=== PATIENT | female | born 1955 | race Two or more races ===

== ENCOUNTER 2019-01-20 10:42 | Observation (INO) | payer OTHER ==
[~2019-01-20] VITALS: Ht 152.4 cm; Wt 72.6 kg
--- NOTE | 2019-01-20 11:28 | NUR ---
PT PRESENTED TO ED WITH CHEST PAIN X 2 DAYS. PT A&OX4. EKG DONE IN TRIAGE. PT PLACED ON BP, CARDIAC, AND CONT. PULSE OXIMETER. ASSESSMENT COMPLTED. CALL LIGHT IN REACH.
[2019-01-20] MEDS ORDERED: ASPIRIN 81 MG TABLET CHEW PO ONE (11:30)
[2019-01-20] MEDS ORDERED: ASPIRIN 81 MG TABLET CHEW ONE (11:35)
--- NOTE | 2019-01-20 11:43 | NUR ---
BREAK RN: PT MEDICATED ORDERED. PT AMB TO BR GAIT STEADY, TO ATTEMPT TO PROVIDE URINE SPECIMAN.
[2019-01-20 11:46] LABS: BASOPHILS # (AUTO) 0.03 x10^3/uL (0-0.1); BASOPHILS % (AUTO) 0 % (0-1); EOSINOPHILS # (AUTO) 0.04 x10^3/uL (0-0.4); EOSINOPHILS % (AUTO) 1 % (1-7); LYMPHOCYTES # (AUTO) 1.92 x10^3/uL (1-3.4); LYMPHOCYTES % (AUTO) 29 % (22-44); MD NO; MEAN CORPUSCULAR HEMOGLOBIN 30.4 pg (27.0-34.8); MEAN CORPUSCULAR HGB CONC 33.9 g/dL (32.4-35.8); MEAN CORPUSCULAR VOLUME 89.7 fL (80-100); MEAN PLATELET VOLUME 7.7 fL (7.4-10.4); MONOCYTES # (AUTO) 0.38 x10^3/uL (0.2-0.8); MONOCYTES % (AUTO) 6 % (2-9); NEUTROPHILS # (AUTO) 4.26 x10^3/uL (1.8-6.8); NEUTROPHILS % (AUTO) 64 % (42-75); PLATELET COUNT 196 x10^3/uL (130-400); RED BLOOD COUNT 4.46 x10^6/uL (3.82-5.3); RED CELL DISTRIBUTION WIDTH 13.1 % (9.6-15.2)
[2019-01-20 11:54] LABS: CHLORIDE 112 mmol/L (98-107)
[2019-01-20 11:57] LABS: ALBUMIN 3.8 g/dL (3.4-5.0); ANION GAP 6 mmol/L (5-15)
[2019-01-20 12:02] LABS: ALANINE AMINOTRANSFERASE 22 U/L (12-78); ALKALINE PHOSPHATASE 76 U/L (45-117); BILIRUBIN,TOTAL 0.3 mg/dL (0.2-1.0); TOTAL PROTEIN 7.4 g/dL (6.4-8.2); TROPONIN I < 0.015 ng/mL (0.000-0.045)
--- NOTE | 2019-01-20 12:03 | NUR ---
PT ABLE TO PROVIDE URINE SPECIMAN. SENT TO LAB. PT AND PTS FAMILY UPDATED ON POC. PT SR PER MONITOR. NO NEEDS EXPRESSED AT THIS TIME.
[2019-01-20 12:15] LABS: MICROSCOPIC AUTO
[2019-01-20 12:16] LABS: CULTURE INDICATED? NO
[2019-01-20] MEDS ORDERED: TELM1TAB41 PO (12:44)
[2019-01-20] MEDS ORDERED: SODIUM CHLORIDE 0.9% 1,000 ML IV ONE (13:06)
[2019-01-20] MEDS ORDERED: SODIUM CHLORIDE FLUSH 10ML SYR IVF PRN (13:30)
[2019-01-20] MEDS ORDERED: LEVO25TA2 PO (13:37)
--- NOTE | 2019-01-20 13:38 | NUR ---
REPORT GIVEN TO RODRIGUEZ BOWLING. PT WILL THEN BE TRANSFERRRED
[2019-01-20 14:08] VITALS: BP 133/84
[2019-01-20] MEDS ORDERED: ACETAMINOPHEN 325 MG TABLET PO PRN (15:00)
[2019-01-20] MEDS ORDERED: NITROGLYCERIN 0.4 MG BOTTLE (25 TABS) SL PRN (15:00)
[2019-01-20] MEDS ORDERED: ENOXAPARIN 40 MG/0.4 ML SQ SCH (15:00)
[2019-01-20] MEDS ORDERED: ONDANSETRON 2MG/ML, 2ML IVPush PRN (15:00)
[2019-01-20] MEDS ORDERED: hydrALAzine 20 MG/ML, 1ML IVPush PRN (15:00)
[2019-01-20] MEDS ORDERED: TEMAZEPAM 15 MG CAPSULE PO PRN (15:00)
[2019-01-20] MEDS ORDERED: morphine SULFATE 10 MG/ML, 1ML IVPush PRN (15:00)
[2019-01-20 17:05] VITALS: BP 122/81
[2019-01-20 17:22] VITALS: BP 100/67
[2019-01-20 18:38] LABS: TROPONIN I < 0.015 ng/mL (0.000-0.045)
[2019-01-20 18:45] VITALS: BP 111/77
[2019-01-20 21:30] VITALS: BP 95/64
[2019-01-21 01:10] LABS: TROPONIN I < 0.015 ng/mL (0.000-0.045)
[2019-01-21 01:35] VITALS: BP 109/76
[2019-01-21 05:30] LABS: CHOL/HDL RATIO 3.2; LDL/HDL RATIO 1.4 (0.5-3.0)
[2019-01-21] MEDS ORDERED: LEVOTHYROXINE 100 MCG TABLET PO SCH (06:00)
[2019-01-21 07:20] VITALS: BP 131/78
[2019-01-21] MEDS ORDERED: REGADENOSON 0.4 MG/5 ML SYRINGE ONE (08:33)
[2019-01-21] MEDS ORDERED: AMLODIPINE 10 MG TAB PO SCH (09:00)
[2019-01-21] MEDS ORDERED: TELMISARTAN PO SCH (09:00)
[2019-01-21] MEDS ORDERED: [UNRECOGNIZED DRUG - OTHER] PO SCH (09:00)
[2019-01-21] MEDS ORDERED: AMLODIPINE PO SCH (09:00)
[2019-01-21] MEDS ORDERED: LOSARTAN 50MG TABLET PO SCH (09:00)
[2019-01-21 13:50] VITALS: BP 120/84
[2019-01-21] MEDS ORDERED: MELA5CAP PO (14:18)
[2019-01-21] MEDS ORDERED: SIMV20TA PO (14:20)
== END 2019-01-21 17:44 | disposition home or self-care (01) ==
LOC: ED 12:51 → INTOOBSV 13:13 → EDIP 13:13 → 5SO 14:04
PROVIDERS: ADMIT Hospitalist; ATTEND Internal Medicine
DX: R07.89 Other chest pain (principal); I10 Essential (primary) hypertension; F41.9 Anxiety disorder, unspecified; E66.9 Obesity, unspecified; E03.9 Hypothyroidism, unspecified
CPT/HCPCS: 36415; 71046; 78452; 80053; 80061; 81001; 83690; 83880; 84443; 84484; 85025; 85379; 93005; 93017; 93306; 96372; 99284; A9502; C9898; G0378; J1650; J2785

== ENCOUNTER → 2020-08-22 | Outpatient (CLI) | payer OTHER ==
[~2020-08-22] MED LIST: LEVO25TA2 PO; MELA5CAP PO; SIMV20TA PO; TELM1TAB41 PO
== END | disposition home or self-care (01) ==
LOC: CFH 06:44
PROVIDERS: ATTEND Internal Medicine Cardiovascular Disease
DX: I08.8 Other rheumatic multiple valve diseases (principal); R07.9 Chest pain, unspecified; I11.9 Hypertensive heart disease without heart failure; E78.5 Hyperlipidemia, unspecified
CPT/HCPCS: 93306